=== PATIENT | male | born 1985 | race Caucasian/White ===

== ENCOUNTER 2017-08-11 19:13 | Emergency (ER) | payer OTHER ==
[~2017-08-11] VITALS: Ht 162.6 cm; Wt 54.5 kg
[~2017-08-11 19:13] MED LIST: LORT5TAB PO; Z.0.NO CURRENT MEDS
[2017-08-11 19:14] VITALS: BP 144/67; PULSE 89; RESP 18; TEMP 101.3; O2SAT 99
[2017-08-11 20:49] VITALS: TEMP 99.2
[2017-08-11] MEDS ORDERED: SODIUM CHLOR 0.9% 1000 ML INJ 1,000 ML IV SCH (20:55)
[2017-08-11] MEDS ORDERED: SODIUM CHLORIDE 0.9% FLUSH 10 ML FLUSH IV FLUSH PRN (21:00)
[2017-08-11] MEDS ORDERED: SODIUM CHLOR 0.9% 1000 ML INJ 1,000 ML IV ONE ×2 (21:00→22:45)
[2017-08-11] MEDS ORDERED: MORPHINE SULFATE 4 MG/ML INJ IV PUSH ONE (21:00)
[2017-08-11] MEDS ORDERED: ONDANSETRON HCL 4 MG/2 ML VIAL IVP ONE (21:00)
--- NOTE | 2017-08-11 21:31 | PD ---
HPI . Vomiting Chief Complaint: GI Complaint Time Seen by Provider: 20:55 Travel History International Travel<30 days: No Contact w/Intl Traveler<30days: No Traveled to known affect area: No History of Present Illness HPI This patient presents with a 24-hour history of nausea and vomiting. He reports minimal diarrhea. He has associated fever. He states that his urine is dark. He has developed a sore throat due to the vomiting. His vomiting has been severe. There have been no modifying factors. CBC & BMP Diagram 08/11/17 21:00 Total Protein 8.5 H, Albumin 5.7 H, Calcium Level 10.6 H, Alkaline Phosphatase 69, Aspartate Amino Transf (AST/SGOT) 26, Alanine Aminotransferase (ALT/SGPT) 38 , Total Bilirubin 1.6 H LA 2.5. PFSH Past Medical History Anxiety: Yes Diminished Hearing: No Immunizations Current: Yes Tetanus Vaccination: Unknown Influenza Vaccination: No Past Surgical History Surgical History: No Previous Surgery Social History Alcohol Use: Yes (3-6 beers 3-5x week) Tobacco Use: No Substance Use: Yes (marijuana daily) Allergies-Medications (Allergen,Severity, Reaction): Coded Allergies: aspirin (Unverified Allergy, Mild, Anaphylaxis, 08/11/17) codeine (Unverified Allergy, Mild, Anaphylaxis, 08/11/17) Reported Meds & Prescriptions Reported Meds & Active Scripts Active Review of Systems Except as stated in HPI: all other systems reviewed are Neg General / Constitutional: Positive: Fever, Chills HENT: Positive: Sore Throat Cardiovascular: No: Chest Pain or Discomfort Respiratory: No: Shortness of Breath Gastrointestinal: Positive: Nausea, Vomiting, Diarrhea, Abdominal Pain Genitourinary: Positive: Decreased Urinary Output Physical Exam Narrative GENERAL: Awake and alert. SKIN: warm/dry. HEAD: Normocephalic. Atraumatic. EYES: Pupils equal and round. No scleral icterus. No injection or drainage. ENT: No nasal bleeding or discharge. Mucous membranes pink and moist. NECK: Trachea midline. Full range of motion without pain.. CARDIOVASCULAR: Regular rate and rhythm. Heart sounds are normal. RESPIRATORY: No accessory muscle use. Clear to auscultation. Breath sounds equal bilaterally. GASTROINTESTINAL: Abdomen soft. Diffuse tenderness with no guarding or rebound. Bowel sounds present. Nondistended. MUSCULOSKELETAL: No obvious deformities. NEUROLOGICAL: Awake and alert. No obvious cranial nerve deficits. Motor grossly within normal limits. Normal speech. PSYCHIATRIC: Appropriate mood and affect; insight and judgment normal. Data Data Last Documented VS Vital Signs Date Time Temp Pulse Resp B/P (MAP) Pulse Ox O2 Delivery O2 Flow Rate FiO2 08/12/17 00:52 98.5 08/12/17 00:51 81 15 96 Room Air Orders Orders Complete Blood Count With Diff (08/11/17 20:55) Comprehensive Metabolic Panel (08/11/17 20:55) Lipase (08/11/17 20:55) Lactic Acid (08/11/17 20:55) Urinalysis - C+S If Indicated (08/11/17 20:55) Iv Access Insert/Monitor (08/11/17 20:55) Morphine Inj (Morphine Inj) (08/11/17 21:00) Ondansetron Inj (Zofran Inj) (08/11/17 21:00) Sodium Chlor 0.9% 1000 Ml Inj (Ns 1000 M (08/11/17 20:55) Sodium Chloride 0.9% Flush (Ns Flush) (08/11/17 21:00) Sodium Chlor 0.9% 1000 Ml Inj (Ns 1000 M (08/11/17 21:00) Blood Culture (08/11/17 21:15) Sodium Chlor 0.9% 1000 Ml Inj (Ns 1000 M (08/11/17 22:45) Lactic Acid (08/11/17 23:00) Prochlorperazine Inj (Compazine Inj) (08/12/17 00:15) Diphenhydramine Inj (Benadryl Inj) (08/12/17 00:15) Labs Laboratory Tests Test 08/11/17 21:00 08/11/17 23:09 08/12/17 00:26 White Blood Count 24.5 TH/MM3 Red Blood Count 5.03 MIL/MM3 Hemoglobin 15.4 GM/DL Hematocrit 44.4 % Mean Corpuscular Volume 88.4 FL Mean Corpuscular Hemoglobin 30.7 PG Mean Corpuscular Hemoglobin Concent 34.8 % Red Cell Distribution Width 13.8 % Platelet Count 237 TH/MM3 Mean Platelet Volume 8.8 FL Neutrophils (%) (Auto) 89.5 % Lymphocytes (%) (Auto) 2.7 % Monocytes (%) (Auto) 7.6 % Eosinophils (%) (Auto) 0.0 % Basophils (%) (Auto) 0.2 % Neutrophils # (Auto) 21.9 TH/MM3 Lymphocytes # (Auto) 0.7 TH/MM3 Monocytes # (Auto) 1.9 TH/MM3 Eosinophils # (Auto) 0.0 TH/MM3 Basophils # (Auto) 0.0 TH/MM3 CBC Comment DIFF FINAL Differential Comment Blood Urea Nitrogen 18 MG/DL Creatinine 1.18 MG/DL Random Glucose 116 MG/DL Total Protein 8.5 GM/DL Albumin 5.7 GM/DL Calcium Level 10.6 MG/DL Alkaline Phosphatase 69 U/L Aspartate Amino Transf (AST/SGOT) 26 U/L Alanine Aminotransferase (ALT/SGPT) 38 U/L Total Bilirubin 1.6 MG/DL Sodium Level 133 MEQ/L Potassium Level 3.6 MEQ/L Chloride Level 88 MEQ/L Carbon Dioxide Level 27.0 MEQ/L Anion Gap 18 MEQ/L Estimat Glomerular Filtration Rate 71 ML/MIN Lactic Acid Level 2.5 mmol/L 2.9 mmol/L Lipase 68 U/L Urine Color YELLOW Urine Turbidity CLEAR Urine pH 6.5 Urine Specific [place] 1.026 Urine Protein 30 mg/dL Urine Glucose (UA) NEG mg/dL Urine Ketones 150 mg/dL Urine Occult Blood NEG Urine Nitrite NEG Urine Bilirubin NEG Urine Urobilinogen LESS THAN 2.0 MG/DL Urine Leukocyte Esterase NEG Urine RBC 1 /hpf Urine WBC 1 /hpf Urine Mucus FEW /lpf Microscopic Urinalysis Comment CULT NOT INDICATED MDM Medical Decision Making Medical Screen Exam Complete: Yes Emergency Medical Condition: Yes Differential Diagnosis Differential diagnosis includes but is not limited to viral gastritis, food poisoning, pancreatitis, pneumonia, hepatitis, acute coronary syndrome, Narrative Course This patient presents with chief complaint of nausea and vomiting. He'll be treated with IV fluids and IV antibiotics. He is febrile. Labs and UA are pending. CBC & BMP Diagram 08/11/17 21:00 Total Protein 8.5 H, Albumin 5.7 H, Calcium Level 10.6 H, Alkaline Phosphatase 69, Aspartate Amino Transf (AST/SGOT) 26, Alanine Aminotransferase (ALT/SGPT) 38 , Total Bilirubin 1.6 H Initial LA 2.5. Repeat LA 2 hours later was 2.9. His emesis has recurred. He continues to have no abdominal pain and no abdominal tenderness. He has tolerated fluids without further emesis. He will be discharged home. Sepsis Criteria SIRS Criteria (2 or more): Temp > 100.9 or < 96.8, WBC > 85930, < 4000 or > 10 % bands Sepsis Criteria (SIRS+source): Infect source susp/known Severe Sepsis (+one): Lactate >2 Criteria Outcome: Meets SIRS criteria, Meets sepsis criteria Physician Communication Physician Communication Dr Plata does not believe that admission or observation is necessary. Diagnosis Primary Impression: Vomiting Qualified Codes: R11.2 - Nausea with vomiting, unspecified Additional Impressions: Leukocytosis Qualified Codes: D72.829 - Elevated white blood cell count, unspecified Sepsis Qualified Codes: A41.9 - Sepsis, unspecified organism Admitting Information Admitting Physician Requests: Admit Patient Instructions: Acute Nausea and Vomiting (DC), General Instructions Med/Other Pt SpecificInfo: Prescription(s) given Scripts Promethazine (Phenergan) 25 Mg Tablet 25 MG PO Q6H Y for NAUSEA OR VOMITING, #10 TAB 0 Refills Prov: Krysten Lees MD 08/12/17 Disposition: 01 DISCHARGE HOME Condition: Stable Krysten Lees MD Aug 11, 2017 21:30
[2017-08-11 21:32] LABS: AUTOMATED NEUTROPHIL # 21.9 TH/MM3 (1.8-7.7); BASOPHIL % 0.2 % (0.0-2.0); HEMATOCRIT 44.4 % (39.0-51.0); HEMO FLAGS DIFF FINAL; LYMPH % 2.7 % (9.0-44.0); LYMPHOCYTE # 0.7 TH/MM3 (1.0-4.8); MEAN CELL VOLUME 88.4 FL (80.0-100.0); MEAN CORPUSCULAR HEMOGLOBIN 30.7 PG (27.0-34.0); MEAN CORPUSCULAR HGB CONC 34.8 % (32.0-36.0); MONO % 7.6 % (0.0-8.0); NEUT % 89.5 % (16.0-70.0); PLATELET COUNT 237 TH/MM3 (150-450); RED BLOOD COUNT 5.03 MIL/MM3 (4.50-5.90); RED CELL DISTRIBUTION WIDTH 13.8 % (11.6-17.2); WHITE BLOOD COUNT 24.5 TH/MM3 (4.0-11.0)
[2017-08-11 21:42] LABS: ALT (GPT) 38 U/L (12-78); ANION GAP 18 MEQ/L (5-15); AST (GOT) 26 U/L (15-37); BLOOD UREA NITROGEN 18 MG/DL (7-18); CHLORIDE 88 MEQ/L (98-107); GLOMERULAR FILTRATION RATE 71 ML/MIN (>89); POTASSIUM 3.6 MEQ/L (3.5-5.1); SODIUM (NA) 133 MEQ/L (136-145)
[2017-08-11 21:44] LABS: ALKALINE PHOSPHATASE 69 U/L (45-117); TOTAL BILIRUBIN ADULT 1.6 MG/DL (0.2-1.0)
[2017-08-11 22:34] VITALS: BP 100/53; PULSE 84; RESP 16; O2SAT 98
[2017-08-12] MEDS ORDERED: PROCHLORPERAZINE INJ 10 MG/2 ML VIAL IV PUSH ONE (00:15)
[2017-08-12] MEDS ORDERED: diphenhydrAMINE HCL 50 MG/ML VIAL IV PUSH ONE (00:15)
[2017-08-12 00:45] LABS: BLOOD, URINE NEG (NEG); COMMENT (UR) CULT NOT INDICATED; CULTURE IF INDICATED CULT NOT INDICATED; GLUCOSE,URINE NEG (NEG); KETONE, URINE 150 mg/dL (NEG); MUCUS URINE FEW /lpf (OCC); NITRITE,URINE NEG (NEG); PH, URINE 6.5 (5.0-8.5); URINE COLOR YELLOW (YELLW/STRAW)
[2017-08-12 00:51] VITALS: BP 104/55; PULSE 81; RESP 15; O2SAT 96
[2017-08-12 00:52] VITALS: TEMP 98.5
[2017-08-12] MEDS ORDERED: PROM25TA10 PO (01:21)
== END 2017-08-12 01:40 | disposition home or self-care (01) ==
LOC: NEPC 19:13
DX: R11.2 Nausea with vomiting, unspecified (principal); D72.829 Elevated white blood cell count, unspecified; A41.9 Sepsis, unspecified organism; R19.7 Diarrhea, unspecified; R50.9 Fever, unspecified; R07.0 Pain in throat; Z86.59 Personal history of other mental and behavioral disorders
CPT/HCPCS: 80053; 81001; 83605; 83690; 85025; 87040; 96361; 96374; 96375; 99284; J0780; J1200; J2270; J2405; J7030

== ENCOUNTER 2018-07-18 15:09 | Observation (INO) ==
[2018-07-18] MEDS ORDERED: Sod Chloride 0.9% Inj 1,000 ML IV.SIG ONE ×3 (16:26→18:47)
[2018-07-18] MEDS ORDERED: Morphine Inj 4 MG/ML Vial IV.PUSH ONE (16:26)
--- NOTE | 2018-07-18 16:26 | ED ---
HPI General Chief complaint: Nausea/Vomiting/Diarrhea Stated complaint: vomitting Time Seen by Provider: 07/18/18 16:24 Source: patient Mode of arrival: ambulatory Limitations: no limitations History of Present Illness HPI narrative: Patient comes in stating that he had acute onset of nausea and vomiting repeated episodes not improving on their own. Patient denies any history of fever abdominal pain headache chest pain or back pain prior to the nausea vomiting, patient also additionally denies having any diarrhea with this. Patient also states that he does not take any medications on a regular basis. He also denies any past medical surgical history. Only allergies are to aspirin and codeine to which she develops hives and swelling to lips and throat. Onset (ago): hour(s) (1) Radiation: non-radiation Severity: severe Severity scale (1-10): 10 (This severity scale is to show the degree of nausea and vomiting not of any pain scale) Quality: other Pain Consistency: other Relieving factors: none Exacerbating factors: none Associated symptoms: nausea/vomiting Related Data Home Medications Medication Instructions Recorded Confirmed No Known Home Medications 07/18/18 07/18/18 Allergies Allergy/AdvReac Type Severity Reaction Status Date / Time aspirin Allergy Mild Anaphylaxis Verified 07/18/18 16:54 codeine Allergy Mild Anaphylaxis Verified 07/18/18 16:54 Review of Systems ROS: all other systems reviewed are negative PMFSH History History Provided By: Patient Social History Social History Substance History: No History of Abuse Second Hand Smoke Exposure: No Smoking Status: Never smoker How Often Do You Have a Drink Containing Alcohol: 2 to 4 times a month Recent Travel in [facility] within the Last 8 Weeks: No Recent Out of Country Travel within the Last 8 Weeks: No Exam Narrative Exam Narrative: GENERAL: male young retching SKIN: Warm and dry. HEAD: Atraumatic. Normocephalic. EYES: Pupils equal and round. No scleral icterus. No injection or drainage. ENT: No nasal bleeding or discharge. Mucous membranes pink and moist. NECK: Trachea midline. No JVD. CARDIOVASCULAR: Regular rate and rhythm. no rubs or gallops RESPIRATORY: No accessory muscle use. Clear to auscultation. Breath sounds equal bilaterally. GASTROINTESTINAL: Abdomen soft, non-tender, nondistended. No rebound or guarding ... Hypoactive bowel sounds MUSCULOSKELETAL: Extremities without clubbing, cyanosis, or edema. No obvious deformities. NEUROLOGICAL: Awake and alert. No obvious cranial nerve deficits. Motor grossly within normal limits. Five out of 5 muscle strength in the arms and legs. Normal speech. PSYCHIATRIC: Appropriate mood and affect; insight and judgment normal. Course Initial Documented Vital Signs Temperature 97.6 F 07/18/18 15:59 Pulse Rate 68 07/18/18 15:59 Respiratory Rate 17 07/18/18 15:59 Blood Pressure 119/68 07/18/18 15:59 Pulse Oximetry 98 07/18/18 15:59 Last Documented Vital Signs Temperature 97.6 F 07/18/18 15:59 Pulse Rate 68 07/18/18 15:59 Respiratory Rate 17 07/18/18 15:59 Blood Pressure 119/68 07/18/18 15:59 Pulse Oximetry 95 07/18/18 17:21 Critical Care Time Critical Care Time: Yes Total Critical Care Time: 30 Attestation: Aggregate critical care time was 30 minutes. Time to perform other separately billable procedures was not included in the critical care time. My time did not include minutes spent treating any other patients simultaneously or on activities that did not directly contribute to the patient's treatment. The services I provided to this patient were to treat and/or prevent clinically significant deterioration. I provided critical care services requiring my management, as noted below: Chart data review, documentation time, medication orders and management, vital sign assessments/reviewing monitor data, ordering and reviewing lab tests, ordering and interpreting/reviewing x-rays and diagnostic studies, care of the patient and discussion of the patient with the admitting physicians. Medical Decision Making MDM Narrative Medical Screen Exam Complete: Yes Emergency Medical Condition: Yes Differential Diagnosis Differential Diagnosis: Gastroenteritis versus pancreatitis versus hepatitis versus electrolyte imbalance Medical Records Medical records reviewed: Yes I reviewed the patient's medical records. Lab Data Result diagrams: 07/18/18 16:44 07/18/18 16:44 Lab Results 07/18/18 07/18/18 07/18/18 Range/Units 16:44 16:44 16:44 WBC 24.4 H (4.0-11.0) th/mm3 RBC 5.08 (4.50-5.90) mil/mm3 Hgb 15.4 (13.0-17.0) gm/dL Hct 44.9 (39.0-51.0) % MCV 88.5 (80.0-100.0) fL MCH 30.3 (27.0-34.0) pg MCHC 34.3 (32.0-36.0) % RDW 13.6 (11.6-17.2) % Plt Count 265 (150-450) th/mm3 MPV 7.9 (7.0-11.0) fL Neut % (Auto) 92.4 H (16.0-70.0) % Lymph % (Auto) 2.4 L (9.0-44.0) % Cross % (Auto) 5.2 (0.0-8.0) % Eos % (Auto) 0.0 (0.0-4.0) % Baso % (Auto) 0.0 (0.0-2.0) % Neut # (Auto) 22.5 H (1.8-7.7) th/mm3 Lymph # (Auto) 0.6 L (1.0-4.8) th/mm3 Cross # (Auto) 1.3 H (0.0-0.9) th/mm3 Eos # (Auto) 0.0 (0.0-0.4) th/mm3 Baso # (Auto) 0.0 (0.0-0.2) th/mm3 WBC Differential . Differential Comment Auto diff final Sodium 138 (136-145) meq/L Potassium 3.6 (3.5-5.1) meq/L Chloride 100 (98-107) meq/L Carbon Dioxide 24.1 (21.0-32.0) meq/L Anion Gap 14 (5-15) meq/L BUN 18 (7-18) mg/dL Creatinine 1.15 (0.60-1.30) mg/dL Estimated GFR 73 L (>89) mL/min Random Glucose 175 H (74-106) mg/dL Lactic Acid 4.1 H* (0.4-2.0) mmol/L Calcium 9.3 (8.5-10.1) mg/dL Total Bilirubin 1.3 H (0.2-1.0) mg/dL AST 20 (15-37) U/L ALT 27 (12-78) U/L Alkaline Phosphatase 68 (45-117) U/L Total Protein 7.8 (6.4-8.2) g/dL Albumin 5.3 H (3.4-5.0) g/dL Lipase 101 (73-393) U/L Imaging Data Radiologist's impression: Abdomen/Pelvis CT 07/18/18 16:26 CONCLUSION: 1. No acute CT abnormality in the abdomen or pelvis. 2. Normal appendix. 3. Mild sigmoid diverticulosis. Discharge Plan Discharge Disposition Patient Disposition: 30 Still Patient Discharge Condition Condition: Fair Discharge Details Diagnosis: Dehydration, Systemic inflammatory response syndrome, Acidosis, lactic Physicians Team ED Provider: Ike Reyes Primary Care Provider: Primary Care Emi Foster Attending Provider: Shahram Meek Status ED Status: Admitted Observation Patient
[2018-07-18 17:31] LABS: Hematocrit 44.9 % (39.0-51.0); Hemoglobin 15.4 gm/dL (13.0-17.0); Lymph # (Auto) 0.6 th/mm3 (1.0-4.8); Lymph % (Auto) 2.4 % (9.0-44.0); Mean Corpuscular HGB Conc 34.3 % (32.0-36.0); Mean Corpuscular Hemoglobin 30.3 pg (27.0-34.0); Mean Corpuscular Volume 88.5 fL (80.0-100.0); Mean Platelet Volume 7.9 fL (7.0-11.0); Mono # (Auto) 1.3 th/mm3 (0.0-0.9); Mono % (Auto) 5.2 % (0.0-8.0); Neut # (Auto) 22.5 th/mm3 (1.8-7.7); Neut % (Auto) 92.4 % (16.0-70.0); Platelet Count 265 th/mm3 (150-450); Red Blood Count 5.08 mil/mm3 (4.50-5.90); Red Cell Distribution Width 13.6 % (11.6-17.2); White Blood Count 24.4 th/mm3 (4.0-11.0)
--- NOTE | 2018-07-18 17:50 | CT ---
EXAM DATE: 07/18/2018 5:45 PM EDT AGE/SEX: 33 years / Male INDICATIONS: Nausea and vomiting today. CLINICAL DATA: This is the patient's initial encounter. Patient reports that signs and symptoms have been present for 1 day and indicates a pain score of 7/10. MEDICAL/SURGICAL HISTORY: None. None. RADIATION DOSE: 6.64 CTDI (mGy) COMPARISON: No prior exams available for comparison. TECHNIQUE: Multiple contiguous axial images were obtained through the abdomen. Images were obtained using multiple row detector helical technique. Using automated exposure control and adjustment of the mA and/or kV according to patient size, radiation dose was kept as low as reasonably achievable to o btain optimal diagnostic quality images. DICOM format image data is available electronically for rev iew and comparison. FINDINGS: LOWER LUNGS: The visualized lower lungs are clear. LIVER: Homogeneous density without intrahepatic ductal dilatation or volume loss. SPLEEN: Homogeneous density without enlargement. PANCREAS: Grossly unremarkable. KIDNEYS: Kidneys are symmetrical in size without radiopaque renal calculi or hydronephrosis. No sign ificant contour deforming renal abnormality. ADRENAL GLANDS: Unremarkable. AORTA: Precious-aneurysmal. BOWEL/MESENTERY: Scattered mild sigmoid diverticula without inflammatory change. Appendix is normal in appearance. The cecum and sigmoid colon have a normal configuration. Bowel appears unremarkable. N o free fluid or drainable fluid collections. No free air. ABDOMINAL WALL: Intact. RETROPERITONEUM: No evidence of adenopathy in the retrocrural, para-aortic, or deep pelvic regions. BLADDER: Contours are smooth. REPRODUCTIVE: No abnormal masses or calcifications seen. Calcifications in the pelvis likely reflect phleboliths. BONY STRUCTURES: Unremarkable. CONCLUSION: 1. No acute CT abnormality in the abdomen or pelvis. 2. Normal appendix. 3. Mild sigmoid diverticulosis. Electronically signed by: Ronnell Velazquez MD 07/18/2018 5:49 PM EDT
[2018-07-18 17:53] LABS: Albumin 5.3 g/dL (3.4-5.0); Anion Gap 14 meq/L (5-15); Aspartate Aminotransferase 20 U/L (15-37); Blood Urea Nitrogen 18 mg/dL (7-18); Calcium 9.3 mg/dL (8.5-10.1); Carbon Dioxide 24.1 meq/L (21.0-32.0); Chloride 100 meq/L (98-107); Glomerular Filtration Rate 73 mL/min (>89); Glucose,Random 175 mg/dL (74-106); Lipase 101 U/L (73-393); Potassium 3.6 meq/L (3.5-5.1); Sodium 138 meq/L (136-145)
[2018-07-18 17:54] LABS: Alanine Aminotransferase 27 U/L (12-78)
[2018-07-18 17:56] LABS: Alkaline Phosphatase 68 U/L (45-117); Total Protein 7.8 g/dL (6.4-8.2)
[2018-07-18] MEDS ORDERED: Acetaminophen 325 MG Tablet PO PRN (18:44)
[2018-07-18] MEDS ORDERED: Morphine Inj 4 MG/ML Vial IV.PUSH PRN (18:47)
[2018-07-18 19:18] LABS: Bilirubin,Urine Negative (Negative); Clarity,Urine Clear (Clear); Color,Urine Yellow (Yellw/Straw); Glucose,Urine (UA) 500 or Greater mg/dL (Negative); Leukocyte Esterase,Urine Negative (Negative); Mucus,Urine Few /lpf (Occasional); Nitrite,Urine Negative (Negative); Specific Gravity,Urine 1.025 (1.002-1.035); Squamous Epithelial Cell,Urine <1 /hpf (0-5)
--- NOTE | 2018-07-18 20:58 | P.HP ---
History of Present Illness Service: [facility] Primary Care Physician: No Primary Care Physician History of Present Illness: 33-year-old male with no significant past medical history presents the emergency department for evaluation of emesis 1 day. The patient reports that on waking up this morning he had multiple bouts of nonbloody nonbilious emesis which he estimates to be approximately 10-15 times so far today. The patient denies any crampy abdominal pain or diarrhea. He denies any unusual or new food ingestions. He denies chest pain and shortness of breath. No fever/ chills. 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 He has a leukocytosis of 24, lactic acid of 4.[address] of the abdomen/pelvis that was negative for acute process. Review of Systems All other systems reviewed negative except as stated in HPI PMFSH - History History Provided By: Patient - Medical / Surgical Hx Neg / Unobtainable Medical Problems Denied: Yes Surgical History: No Previous Surgery - Family History Family History: Family History (Last Updated 07/18/18 @ 20:53 by Radha Rodas MD) Other Family history normal - Tobacco History Second Hand Smoke Exposure: No Smoking Status: Never smoker - Alcohol History How Often Do You Have a Drink Containing Alcohol: 2 to 4 times a month - Substance Use History Substance History: No History of Abuse - Substance Use Type Marijuana Status: Active Route Used: Inhalation Reason for Use: Get High - Travel History Recent Travel in the [place] Within the Last 8 Weeks: No Recent Travel Out of the Country Within the Last 8 Weeks: No - Immunization History Tetanus Immunization: Unsure Hx Influenza Vaccine This Season: No Medications and Allergies Active Medications: Active Medications Acetaminophen (Tylenol) 650 mg PO Q4H PRN PRN Reason: Temp > 100.4 Sodium Chloride (Ns Inj) 1,000 mls @ 100 mls/hr IV.CONT .Q10H HÉCTOR Morphine Sulfate (Morphine Inj) 2 mg IV.PUSH Q4H PRN PRN Reason: pain 3-10 Ondansetron HCl (Zofran Inj) 4 mg IV.PUSH Q6H PRN PRN Reason: NAUSEA OR VOMITING Senna/Docusate Sodium (Fabiana-Colace) 1 tab PO BID HÉCTOR Sodium Chloride (Ns Flush) 2 ml IV.FLUSH PRN PRN PRN Reason: FLUSH AFTER USING IV ACCESS Allergies Allergy/AdvReac Type Severity Reaction Status Date / Time aspirin Allergy Mild Anaphylaxis Verified 07/18/18 16:54 codeine Allergy Mild Anaphylaxis Verified 07/18/18 16:54 Home Medications Medication Instructions Recorded Confirmed Type No Known Home Medications 07/18/18 07/18/18 History Exam Vital signs: Vital Signs 07/18/18 15:59 07/18/18 17:21 07/18/18 20:01 Temperature 97.6 F Pulse Rate 68 106 H Respiratory Rate 17 Blood Pressure 119/68 118/57 L Pulse Oximetry 98 95 100 07/18/18 20:03 Temperature Pulse Rate Respiratory Rate Blood Pressure Pulse Oximetry 100 Intake & Output 07/18/18 07/18/18 07/19/18 06:59 18:59 06:59 Intake Total 999 / 999 Balance 999 Weight 63.503 kg Intake: IV 999 / 999 NS Inj 1,000 ML @ Wide Open IV. 999 SIG BOLUS ONE Rx#:[id number] Narrative: Gen.: No acute distress Head: Normocephalic. Atraumatic. EENT: Pupils equal round and reactive to light. Nose without drainage. Airway intact. Throat without injection. Cardiovascular: Regular rate and rhythm. No murmurs, rubs or gallops. Respiratory: Lungs clear to auscultation bilaterally. No wheezes or rhonchi. Abdomen: Soft, nontender, nondistended. No peritoneal signs. Musculoskeletal: No gross deformities. No edema. Skin: No obvious rashes or erythema. Neuro: Sensory and motor grossly intact. Cranial nerves II through XII grossly intact. Results - Labs CBC & Chem 7: 07/18/18 16:44 07/18/18 16:44 Labs: Laboratory Results - last 24 hr 07/18/18 07/18/18 07/18/18 16:44 16:44 16:44 WBC 24.4 H RBC 5.08 Hgb 15.4 Hct 44.9 MCV 88.5 MCH 30.3 MCHC 34.3 RDW 13.6 Plt Count 265 MPV 7.9 Neut % (Auto) 92.4 H Lymph % (Auto) 2.4 L [place] % (Auto) 5.2 Eos % (Auto) 0.0 Baso % (Auto) 0.0 Neut # (Auto) 22.5 H Lymph # (Auto) 0.6 L [place] # (Auto) 1.3 H Eos # (Auto) 0.0 Baso # (Auto) 0.0 WBC Differential . Differential Comment Auto diff final Sodium 138 Potassium 3.6 Chloride 100 Carbon Dioxide 24.1 Anion Gap 14 BUN 18 Creatinine 1.15 Estimated GFR 73 L Random Glucose 175 H Lactic Acid 4.1 H* Calcium 9.3 Total Bilirubin 1.3 H AST 20 ALT 27 Alkaline Phosphatase 68 Total Protein 7.8 Albumin 5.3 H Lipase 101 Urine Color Urine Clarity Urine pH Ur Specific [place] Urine Protein Urine Glucose (UA) Urine Ketones Urine Occult Blood Urine Nitrate Urine Bilirubin Urine Urobilinogen Ur Leukocyte Esterase Urine RBC Urine WBC Ur Squamous Epith Cells Urine Mucus Micro UA Comment Urine Culture Comments 07/18/18 18:19 WBC RBC Hgb Hct MCV MCH MCHC RDW Plt Count MPV Neut % (Auto) Lymph % (Auto) [place] % (Auto) Eos % (Auto) Baso % (Auto) Neut # (Auto) Lymph # (Auto) [place] # (Auto) Eos # (Auto) Baso # (Auto) WBC Differential Differential Comment Sodium Potassium Chloride Carbon Dioxide Anion Gap BUN Creatinine Estimated GFR Random Glucose Lactic Acid Calcium Total Bilirubin AST ALT Alkaline Phosphatase Total Protein Albumin Lipase Urine Color Yellow Urine Clarity Clear Urine pH 7.0 Ur Specific [place] 1.025 Urine Protein 30 H Urine Glucose (UA) 500 or greater Urine Ketones 80 or greater Urine Occult Blood Negative Urine Nitrate Negative Urine Bilirubin Negative Urine Urobilinogen Less than 2 Ur Leukocyte Esterase Negative Urine RBC Less than 1 Urine WBC 1 Ur Squamous Epith Cells <1 Urine Mucus Few H Micro UA Comment Culture not ind Urine Culture Comments Culture not ind - Imaging Impressions Abdomen/Pelvis CT 07/18/18 16:26 CONCLUSION: 1. No acute CT abnormality in the abdomen or pelvis. 2. Normal appendix. 3. Mild sigmoid diverticulosis. Caprini VTE Risk Assessment Caprini VTE Risk Assessment: No/Low Risk (score <= 1) Caprini Risk Assessment Model: Point Value = 1 Point Value = 2 Point Value = 3 Point Value = 5 Age 41-60 Minor surgery BMI > 25 kg/m2 Swollen legs Varicose veins or History of unexplained or recurrent spontaneous Oral contraceptives or hormone replacement Sepsis (< 1 month) Serious lung disease, including pneumonia (< 1 month) Abnormal pulmonary function Acute myocardial infarction Congestive heart failure (< 1 month) History of inflammatory bowel disease Medical patient at bed rest Age 61-74 Arthroscopic surgery Major open surgery (> 45 min) Laparoscopic surgery (> 45 min) Malignancy Confined to bed (> 72 hours) Immobilizing plaster cast Central venous access Age >= 75 History of VTE Family history of VTE Factor V Leiden Prothrombin [id number] Lupus anticoagulant Anticardiolipin antibodies Elevated serum homocysteine Heparin-induced thrombocytopenia Other congenital or acquired thrombophilia Stroke (< 1 month) Elective arthroplasty Hip, pelvis, or leg fracture Acute spinal cord injury (< 1 month) Prophylaxis Regimen: Total Risk Factor Score Risk Level Prophylaxis Regimen 0-1 Low Early ambulation 2 Moderate Order ONE of the following: *Sequential Compression Device (SCD) *Heparin 5000 units SQ BID 3-4 Higher Order ONE of the following medications: *Heparin 5000 units SQ TID *Enoxaparin/Lovenox 40 mg SQ daily (WT < 150 kg, CrCl > 30 mL/min) *Enoxaparin/Lovenox 30 mg SQ daily (WT < 150 kg, CrCl > 10-29 mL/min) *Enoxaparin/Lovenox 30 mg SQ BID (WT < 150 kg, CrCl > 30 mL/min) AND/OR *Sequential Compression Device (SCD) 5 or more Highest Order ONE of the following medications: *Heparin 5000 units SQ TID (Preferred with Epidurals) *Enoxaparin/Lovenox 40 mg SQ daily (WT < 150 kg, CrCl > 30 mL/min) *Enoxaparin/Lovenox 30 mg SQ daily (WT < 150 kg, CrCl > 10-29 mL/min) *Enoxaparin/Lovenox 30 mg SQ BID (WT < 150 kg, CrCl > 30 mL/min) AND *Sequential Compression Device (SCD) Assessment and Plan - Plan Assessment/plan: 1. Emesis Resolving Zofran Patient reports he feels better, would like to leave CT of the abdomen/pelvis negative for acute process Given leukocytosis and elevated lactic acid, will keep patient overnight for observation and lab follow-up 2. Leukocytosis/elevated lactic acid May be secondary to large quantity/volume emesis Repeat lactic acid pending No signs of sepsis, vital signs stable 3. Frequent urination Unclear etiology -patient does report ingesting large quantities of water as he works outside A1c pending FEN Good diet, advance as tolerated Electrolytes: Monitor and replete as needed NS at 100 cc/hour
[2018-07-18] MEDS: Sod Chloride 0.9% Inj 1,000 ML IV.CONT SCH (21:30)
[2018-07-18] MEDS: Senna/Docusate Sodium 8.6/50 MG Tablet PO SCH (21:32)
[2018-07-19 08:22] VITALS: RESP 18
[2018-07-19] MEDS: Sod Chloride 0.9% Inj 1,000 ML IV.CONT SCH ×2 (08:31→09:04)
[2018-07-19 08:46] LABS: Hematocrit 36.3 % (39.0-51.0); Hemoglobin 12.5 gm/dL (13.0-17.0); Lymph # (Auto) 0.7 th/mm3 (1.0-4.8); Lymph % (Auto) 6.1 % (9.0-44.0); Mean Corpuscular HGB Conc 34.3 % (32.0-36.0); Mean Corpuscular Hemoglobin 30.5 pg (27.0-34.0); Mean Platelet Volume 8.2 fL (7.0-11.0); Mono # (Auto) 0.8 th/mm3 (0.0-0.9); Mono % (Auto) 6.8 % (0.0-8.0); Neut # (Auto) 10.6 th/mm3 (1.8-7.7); Neut % (Auto) 87.1 % (16.0-70.0); Platelet Count 182 th/mm3 (150-450); Red Blood Count 4.08 mil/mm3 (4.50-5.90); White Blood Count 12.2 th/mm3 (4.0-11.0)
[2018-07-19] MEDS: Senna/Docusate Sodium 8.6/50 MG Tablet PO SCH (08:59)
[2018-07-19 09:08] LABS: Alanine Aminotransferase 20 U/L (12-78); Albumin 3.9 g/dL (3.4-5.0); Alkaline Phosphatase 50 U/L (45-117); Anion Gap 12 meq/L (5-15); Aspartate Aminotransferase 13 U/L (15-37); Blood Urea Nitrogen 12 mg/dL (7-18); Calcium 7.8 mg/dL (8.5-10.1); Carbon Dioxide 23.9 meq/L (21.0-32.0); Chloride 104 meq/L (98-107); Glomerular Filtration Rate Greater Than 89 mL/min (>89); Glucose,Random 101 mg/dL (74-106); Lipase 77 U/L (73-393); Potassium 3.4 meq/L (3.5-5.1); Sodium 140 meq/L (136-145); Total Protein 6.2 g/dL (6.4-8.2)
[2018-07-19 12:26] VITALS: BP 113/60; PULSE 98; TEMP 98.3; O2SAT 99
[2018-07-19 13:29] LABS: Hemoglobin A1c 5.1 % (4.3-6.0)
--- NOTE | 2018-07-19 14:11 | P.PN ---
Subjective Interval history: Patient is seen resting comfortably in bed. His is present at bedside. He tells me he has not had any further episodes of vomiting and is feeling much better. He does acknowledge that he has had a struggle with anxiety and feels that this may have contributed to his N/V. Denies any chest pain or shortness of breath. No diarrhea. No fever or chills. He would like to go home if possible Physical Exam Vital signs: Vital Signs 07/18/18 15:59 07/18/18 17:21 07/18/18 20:01 Temperature 97.6 F Pulse Rate 68 106 H Respiratory Rate 17 Blood Pressure 119/68 118/57 L Pulse Oximetry 98 95 100 07/18/18 20:03 07/18/18 21:49 07/19/18 00:00 Temperature 98.3 F 97.9 F Pulse Rate 110 H 108 H Respiratory Rate 20 20 Blood Pressure 119/58 L 102/55 L Pulse Oximetry 100 100 94 L 07/19/18 04:00 07/19/18 08:00 07/19/18 12:00 Temperature 98.9 F 98.1 F 98.3 F Pulse Rate 98 H 83 98 H Respiratory Rate 20 18 18 Blood Pressure 136/78 112/58 L 113/60 Pulse Oximetry 100 100 99 Intake & Output 07/18/18 07/19/18 07/19/18 18:59 06:59 18:59 Intake Total 1000 / 1000 2600 / 2600 1999 Balance 1000 / 1000 2600 / 2600 1999 Weight 63.503 kg Intake: IV 1000 / 1000 1999 NS Inj 1,000 ML @ 100 mls/hr IV 1999 .CONT .Q10H HÉCTOR Rx#:[id number] NS Inj 1,000 ML @ Wide Open IV. 1000 / 1000 1999 SIG BOLUS ONE Rx#:[id number] Oral 600 / 600 Other: # Voids 2 Date of Last Bowel Movement 07/18/18 Narrative: GENERAL: Well-nourished, well-developed adult male in no obvious distress. SKIN: Warm and dry. HEAD: Atraumatic. Normocephalic. CARDIOVASCULAR: Regular rate and rhythm. RESPIRATORY: No accessory muscle use. Clear to auscultation. Breath sounds equal bilaterally. GASTROINTESTINAL: Abdomen soft, non-tender, non-distended. Positive bowel sounds. MUSCULOSKELETAL: Extremities without clubbing, cyanosis, or edema. No obvious deformities. NEUROLOGICAL: Awake and alert. No obvious cranial nerve deficits. Motor grossly within normal limits. Normal speech. PSYCHIATRIC: Appropriate mood and affect; insight and judgment good. Results - Labs CBC & Chem 7: 07/19/18 07:03 07/19/18 07:03 Laboratory Results - last 24 hr 07/18/18 07/18/18 07/18/18 16:44 16:44 16:44 WBC 24.4 H RBC 5.08 Hgb 15.4 Hct 44.9 MCV 88.5 MCH 30.3 MCHC 34.3 RDW 13.6 Plt Count 265 MPV 7.9 Neut % (Auto) 92.4 H Lymph % (Auto) 2.4 L [place] % (Auto) 5.2 Eos % (Auto) 0.0 Baso % (Auto) 0.0 Neut # (Auto) 22.5 H Lymph # (Auto) 0.6 L [place] # (Auto) 1.3 H Eos # (Auto) 0.0 Baso # (Auto) 0.0 WBC Differential . Differential Comment Auto diff final Sodium 138 Potassium 3.6 Chloride 100 Carbon Dioxide 24.1 Anion Gap 14 BUN 18 Creatinine 1.15 Estimated GFR 73 L Random Glucose 175 H Lactic Acid 4.1 H* Calcium 9.3 Total Bilirubin 1.3 H AST 20 ALT 27 Alkaline Phosphatase 68 Total Protein 7.8 Albumin 5.3 H Lipase 101 Urine Color Urine Clarity Urine pH Ur Specific [place] Urine Protein Urine Glucose (UA) Urine Ketones Urine Occult Blood Urine Nitrate Urine Bilirubin Urine Urobilinogen Ur Leukocyte Esterase Urine RBC Urine WBC Ur Squamous Epith Cells Urine Mucus Micro UA Comment Urine Culture Comments 07/18/18 07/18/18 07/19/18 18:19 20:19 07:03 WBC 12.2 H RBC 4.08 L Hgb 12.5 L D Hct 36.3 L MCV 89.0 MCH 30.5 MCHC 34.3 RDW 14.0 Plt Count 182 D MPV 8.2 Neut % (Auto) 87.1 H Lymph % (Auto) 6.1 L [place] % (Auto) 6.8 Eos % (Auto) 0.0 Baso % (Auto) 0.0 Neut # (Auto) 10.6 H Lymph # (Auto) 0.7 L [place] # (Auto) 0.8 Eos # (Auto) 0.0 Baso # (Auto) 0.0 WBC Differential . Differential Comment Auto diff final Sodium Potassium Chloride Carbon Dioxide Anion Gap BUN Creatinine Estimated GFR Random Glucose Lactic Acid 1.9 Calcium Total Bilirubin AST ALT Alkaline Phosphatase Total Protein Albumin Lipase Urine Color Yellow Urine Clarity Clear Urine pH 7.0 Ur Specific [place] 1.025 Urine Protein 30 H Urine Glucose (UA) 500 or greater Urine Ketones 80 or greater Urine Occult Blood Negative Urine Nitrate Negative Urine Bilirubin Negative Urine Urobilinogen Less than 2 Ur Leukocyte Esterase Negative Urine RBC Less than 1 Urine WBC 1 Ur Squamous Epith Cells <1 Urine Mucus Few H Micro UA Comment Culture not ind Urine Culture Comments Culture not ind 07/19/18 07:03 WBC RBC Hgb Hct MCV MCH MCHC RDW Plt Count MPV Neut % (Auto) Lymph % (Auto) [place] % (Auto) Eos % (Auto) Baso % (Auto) Neut # (Auto) Lymph # (Auto) [place] # (Auto) Eos # (Auto) Baso # (Auto) WBC Differential Differential Comment Sodium 140 Potassium 3.4 L Chloride 104 Carbon Dioxide 23.9 Anion Gap 12 BUN 12 Creatinine 0.68 Estimated GFR Greater than 89 Random Glucose 101 Lactic Acid Calcium 7.8 L D Total Bilirubin 0.9 AST 13 L ALT 20 Alkaline Phosphatase 50 Total Protein 6.2 L D Albumin 3.9 D Lipase 77 Urine Color Urine Clarity Urine pH Ur Specific [place] Urine Protein Urine Glucose (UA) Urine Ketones Urine Occult Blood Urine Nitrate Urine Bilirubin Urine Urobilinogen Ur Leukocyte Esterase Urine RBC Urine WBC Ur Squamous Epith Cells Urine Mucus Micro UA Comment Urine Culture Comments - Imaging Impressions Abdomen/Pelvis CT 07/18/18 16:26 CONCLUSION: 1. No acute CT abnormality in the abdomen or pelvis. 2. Normal appendix. 3. Mild sigmoid diverticulosis. Assessment and Plan - Plan 1. Emesis Resolving Zofran Patient reports he feels better, would like to leave CT of the abdomen/pelvis negative for acute process 2. Leukocytosis Resolving. No signs of sepsis, vital signs stable 3. Frequent urination Unclear etiology -patient does report ingesting large quantities of water as he works outside A1c pending
--- NOTE | 2018-07-19 14:24 | P.DS ---
Date of admission: 07/18/18 18:37 Primary care physician: No Primary Care Physician Attending physician on discharge: Jamal Kowalski Anticipated date of discharge: 07/19/18 Brief History from admission: 33-year-old male with no significant past medical history presents the emergency department for evaluation of emesis 1 day. The patient reports that on waking up this morning he had multiple bouts of nonbloody nonbilious emesis which he estimates to be approximately 10-15 times so far today. The patient denies any crampy abdominal pain or diarrhea. He denies any unusual or new food ingestions. He denies chest pain and shortness of breath. No fever/ chills. 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 He has a leukocytosis of 24, lactic acid of 4.[address] of the abdomen/pelvis that was negative for acute process. DS: Diagnosis - Discharge Diagnosis (1) Nausea & vomiting Status: Resolved (2) Anxiety Status: Chronic DS: Medications - Discharge Medications Prescriptions: ondansetron 4 mg PO Q6H PRN #30 tab PRN Reason: Nausea Or Vomiting DS: Summary Hospital Course: Patient is a 33-year-old male who presented to the emergency room after 1 day of vomiting and extreme nausea. Reports vomiting more than 10 times in the course of a single day. Has had several episodes of similar vomiting with no associated fever or illness. He does endorse anxiety that is untreated. Agrees to follow-up outpatient. - Time Spent with Patient Total time spent providing and/or coordinating discharge services: Less than 30 minutes - Quality: VTE Deep Vein Thrombosis/Pulmonary Embolism Present on Admission: No Exam Vital signs: Vital Signs 07/18/18 15:59 07/18/18 17:21 07/18/18 20:01 Temperature 97.6 F Pulse Rate 68 106 H Respiratory Rate 17 Blood Pressure 119/68 118/57 L Pulse Oximetry 98 95 100 07/18/18 20:03 07/18/18 21:49 07/19/18 00:00 Temperature 98.3 F 97.9 F Pulse Rate 110 H 108 H Respiratory Rate 20 20 Blood Pressure 119/58 L 102/55 L Pulse Oximetry 100 100 94 L 07/19/18 04:00 07/19/18 08:00 07/19/18 12:00 Temperature 98.9 F 98.1 F 98.3 F Pulse Rate 98 H 83 98 H Respiratory Rate 20 18 18 Blood Pressure 136/78 112/58 L 113/60 Pulse Oximetry 100 100 99 Intake & Output 07/18/18 07/19/18 07/19/18 18:59 06:59 18:59 Intake Total 1000 / 1000 2600 / 2600 1999 Balance 1000 / 1000 2600 / 2600 1999 Weight 63.503 kg Intake: IV 1000 / 1000 1999 NS Inj 1,000 ML @ 100 mls/hr IV 1999 .CONT .Q10H HÉCTOR Rx#:[id number] NS Inj 1,000 ML @ Wide Open IV. 999 SIG BOLUS ONE Rx#:[id number] Oral 600 / 600 Other: # Voids 2 Date of Last Bowel Movement 07/18/18 Narrative: GENERAL: Well-nourished, well-developed adult male in no obvious distress. SKIN: Warm and dry. HEAD: Atraumatic. Normocephalic. CARDIOVASCULAR: Regular rate and rhythm. RESPIRATORY: No accessory muscle use. Clear to auscultation. Breath sounds equal bilaterally. GASTROINTESTINAL: Abdomen soft, non-tender, non-distended. Positive bowel sounds. MUSCULOSKELETAL: Extremities without clubbing, cyanosis, or edema. No obvious deformities. NEUROLOGICAL: Awake and alert. No obvious cranial nerve deficits. Motor grossly within normal limits. Normal speech. PSYCHIATRIC: Appropriate mood and affect; insight and judgment good. Results Procedures completed during hospitalization: none Labs on day of discharge: Labs from last 24 hours 07/19/18 07/19/18 07/18/18 07:03 07:03 20:19 WBC 12.2 H RBC 4.08 L Hgb 12.5 L D Hct 36.3 L MCV 89.0 MCH 30.5 MCHC 34.3 RDW 14.0 Plt Count 182 D MPV 8.2 Neut % (Auto) 87.1 H Lymph % (Auto) 6.1 L [place] % (Auto) 6.8 Eos % (Auto) 0.0 Baso % (Auto) 0.0 Neut # (Auto) 10.6 H Lymph # (Auto) 0.7 L [place] # (Auto) 0.8 Eos # (Auto) 0.0 Baso # (Auto) 0.0 WBC Differential . Differential Comment Auto diff final Sodium 140 Potassium 3.4 L Chloride 104 Carbon Dioxide 23.9 Anion Gap 12 BUN 12 Creatinine 0.68 Estimated GFR Greater than 89 Random Glucose 101 Hemoglobin A1c Lactic Acid 1.9 Calcium 7.8 L D Total Bilirubin 0.9 AST 13 L ALT 20 Alkaline Phosphatase 50 Total Protein 6.2 L D Albumin 3.9 D Lipase 77 Urine Color Urine Clarity Urine pH Ur Specific [place] Urine Protein Urine Glucose (UA) Urine Ketones Urine Occult Blood Urine Nitrate Urine Bilirubin Urine Urobilinogen Ur Leukocyte Esterase Urine RBC Urine WBC Ur Squamous Epith Cells Urine Mucus Micro UA Comment Urine Culture Comments 07/18/18 07/18/18 07/18/18 18:19 16:44 16:44 WBC RBC Hgb Hct MCV MCH MCHC RDW Plt Count MPV Neut % (Auto) Lymph % (Auto) [place] % (Auto) Eos % (Auto) Baso % (Auto) Neut # (Auto) Lymph # (Auto) [place] # (Auto) Eos # (Auto) Baso # (Auto) WBC Differential Differential Comment Sodium Potassium Chloride Carbon Dioxide Anion Gap BUN Creatinine Estimated GFR Random Glucose Hemoglobin A1c 5.1 Lactic Acid 4.1 H* Calcium Total Bilirubin AST ALT Alkaline Phosphatase Total Protein Albumin Lipase Urine Color Yellow Urine Clarity Clear Urine pH 7.0 Ur Specific [place] 1.025 Urine Protein 30 H Urine Glucose (UA) 500 or greater Urine Ketones 80 or greater Urine Occult Blood Negative Urine Nitrate Negative Urine Bilirubin Negative Urine Urobilinogen Less than 2 Ur Leukocyte Esterase Negative Urine RBC Less than 1 Urine WBC 1 Ur Squamous Epith Cells <1 Urine Mucus Few H Micro UA Comment Culture not ind Urine Culture Comments Culture not ind 07/18/18 07/18/18 16:44 16:44 WBC 24.4 H RBC 5.08 Hgb 15.4 Hct 44.9 MCV 88.5 MCH 30.3 MCHC 34.3 RDW 13.6 Plt Count 265 MPV 7.9 Neut % (Auto) 92.4 H Lymph % (Auto) 2.4 L [place] % (Auto) 5.2 Eos % (Auto) 0.0 Baso % (Auto) 0.0 Neut # (Auto) 22.5 H Lymph # (Auto) 0.6 L [place] # (Auto) 1.3 H Eos # (Auto) 0.0 Baso # (Auto) 0.0 WBC Differential . Differential Comment Auto diff final Sodium 138 Potassium 3.6 Chloride 100 Carbon Dioxide 24.1 Anion Gap 14 BUN 18 Creatinine 1.15 Estimated GFR 73 L Random Glucose 175 H Hemoglobin A1c Lactic Acid Calcium 9.3 Total Bilirubin 1.3 H AST 20 ALT 27 Alkaline Phosphatase 68 Total Protein 7.8 Albumin 5.3 H Lipase 101 Urine Color Urine Clarity Urine pH Ur Specific [place] Urine Protein Urine Glucose (UA) Urine Ketones Urine Occult Blood Urine Nitrate Urine Bilirubin Urine Urobilinogen Ur Leukocyte Esterase Urine RBC Urine WBC Ur Squamous Epith Cells Urine Mucus Micro UA Comment Urine Culture Comments - Impressions ITS Impressions Abdomen/Pelvis CT 07/18/18 16:26 CONCLUSION: 1. No acute CT abnormality in the abdomen or pelvis. 2. Normal appendix. 3. Mild sigmoid diverticulosis. Discharge Plan - Discharge Disposition Patient Disposition: 01 Discharge Home - Discharge Condition Condition: Stable - Discharge Order Discharge Orders: Discharge Order (Routine); Ordered 07/19/18 Ordered By: Vannessa Gandhi - Physicians Team Primary Care Provider: Primary Care Kristin,No Attending Provider: Jmaal Kowalski
== END 2018-07-19 18:23 | disposition home or self-care (01) ==
LOC: NEPHCDU 15:09 → NEDA 15:09 → NEPC 15:09 → NEDA 20:49 → NEPHCDU 20:50
PROVIDERS: ADMIT Hospitalist; ATTEND Hospitalist